=== PATIENT | female | born 1995 | race American Indian/Alaskan Native ===

== ENCOUNTER 2019-08-30 11:53 | Emergency (ER) | payer BC ==
--- NOTE | 2019-08-30 12:00 | Event Note ---
Date of service: 08/30/19 Face to Face: 23-year-old female, not known to this provider previously, not sure if she is , reports no pulmonary embolism or DVT risk factors, low risk by well's criteria, perc negative, positive family history of heart disease in her brother, and her father, presenting with intermittent left-sided chest pain, which does not radiate to the back, arms and neck, with no vomiting, diaphoresis or exertional shortness of breath. The patient also describes a sensation of pressure and palpitations for a few days. EKG unchanged and within normal limits 2. Troponin negative times one. Patient at low risk for major adverse cardiac event. A repeat troponin pending, patient currently resting comfortably in his stretcher, and no acute distress. As per this institutions current policy and protocol, given low risk for major adverse cardiac event as per heart score, patient may follow up with outpatient cardiology to complete a risk stratification. Discussed this with the patient and nurse practitioner. Currently engaged in conversation with laborer brush clearing in her room, and no acute distress. Vital Signs 08/30/19 08/30/19 08/30/19 12:15 12:17 12:20 Temperature 98.3 F Pulse Rate 82 91 H Respiratory 11 L 16 Rate Blood Pressure 109/73 109/73 Blood Pressure 109/73 [Left] O2 Sat by Pulse 99 100 100 Oximetry 08/30/19 08/30/19 08/30/19 12:30 12:45 13:00 Temperature Pulse Rate 78 77 77 Respiratory 10 L 39 H 8 L Rate Blood Pressure 104/64 93/55 106/68 Blood Pressure [Left] O2 Sat by Pulse 100 99 97 Oximetry 08/30/19 08/30/19 13:15 13:31 Temperature Pulse Rate 79 Respiratory 11 L Rate Blood Pressure 106/68 106/68 Blood Pressure [Left] O2 Sat by Pulse 99 99 Oximetry Lab Results 08/30/19 08/30/19 08/30/19 Range/Units 12:10 12:10 12:10 WBC 7.7 (4.5-11.0) K/mm3 RBC 4.38 (3.65-5.03) M/mm3 Hgb 12.2 (10.1-14.3) gm/dl Hct 37.1 (30.3-42.9) % MCV 85 (79-97) fl MCH 28 (28-32) pg MCHC 33 (30-34) % RDW 13.6 (13.2-15.2) % Plt Count 375 (140-440) K/mm3 PT 12.4 (12.2-14.9) Sec. INR 0.93 (0.87-1.13) Sodium 138 (137-145) mmol/L Potassium 3.5 L (3.6-5.0) mmol/L Chloride 102.4 (98-107) mmol/L Carbon Dioxide 20 L (22-30) mmol/L Anion Gap 19 mmol/L BUN 8 (7-17) mg/dL Creatinine 0.7 (0.7-1.2) mg/dL Estimated GFR > 60 ml/min BUN/Creatinine Ratio 11 % Glucose 101 H (65-100) mg/dL Calcium 9.2 (8.4-10.2) mg/dL Magnesium 1.90 (1.7-2.3) mg/dL Total Creatine Kinase 127 (30-135) units/L Troponin T (0.00-0.029) ng/mL TSH (0.270-4.200) mlU/mL HCG, Quant (0-4) mIU/mL 08/30/19 08/30/19 08/30/19 Range/Units 12:10 12:10 12:10 WBC (4.5-11.0) K/mm3 RBC (3.65-5.03) M/mm3 Hgb (10.1-14.3) gm/dl Hct (30.3-42.9) % MCV (79-97) fl MCH (28-32) pg MCHC (30-34) % RDW (13.2-15.2) % Plt Count (140-440) K/mm3 PT (12.2-14.9) Sec. INR (0.87-1.13) Sodium (137-145) mmol/L Potassium (3.6-5.0) mmol/L Chloride (98-107) mmol/L Carbon Dioxide (22-30) mmol/L Anion Gap mmol/L BUN (7-17) mg/dL Creatinine (0.7-1.2) mg/dL Estimated GFR ml/min BUN/Creatinine Ratio % Glucose (65-100) mg/dL Calcium (8.4-10.2) mg/dL Magnesium (1.7-2.3) mg/dL Total Creatine Kinase (30-135) units/L Troponin T < 0.010 (0.00-0.029) ng/mL TSH 1.470 (0.270-4.200) mlU/mL HCG, Quant < 2 (0-4) mIU/mL
[2019-08-30 12:27] LABS: Hematocrit 37.1 % (30.3-42.9); Hemoglobin 12.2 gm/dl (10.1-14.3); Mean Corpuscular HGB Conc 33 % (30-34); Mean Corpuscular Volume 85 fl (79-97); Platelet Count 375 K/mm3 (140-440); Red Blood Count 4.38 M/mm3 (3.65-5.03); Red Cell Distribution Width 13.6 % (13.2-15.2)
--- NOTE | 2019-08-30 12:37 | Emergency Department Report ---
<MICHAEL CORDOBA - Last Filed: 08/30/19 15:31> ED Chest Pain HPI - General Chief Complaint: Chest Pain Stated Complaint: RAPID HEART RATE Time Seen by Provider: 08/30/19 12:07 Source: patient, EMS Mode of arrival: Stretcher Limitations: No Limitations - History of Present Illness Initial Comments: 23-year-old female presents to the ER complaining of heart racing associated with chest pain around 10 AM this morning. She had similar symptoms 2 days ago. She denies nausea vomiting diaphoresis. She has past medical history of diabetes she is currently taking metformin. MD Complaint: chest pain, other ("heart racing") -: Sudden Onset: during rest Pain Location: left chest Pain Radiation: none Severity scale (0 -10): 5 Quality: aching Consistency: now resolved Improves With: nothing Worsens With: nothing Other Symptoms: denies: cough, fever, syncope, rash, acid taste in mouth, leg swelling Aspirin use within the Past 7 Days: (0) No - Related Data On Oral Contraceptives: No (none) Allergies Allergy/AdvReac Type Severity Reaction Status Date / Time No Known Allergies Allergy Unverified 08/30/19 12:14 Heart Score - HEART Score History: Slightly suspicious EKG: Normal Age: < 45 Risk factors: 1-2 risk factors Troponin: < normal limit HEART Score: 1 ED Review of Systems Comment: All other systems reviewed and negative Cardiovascular: chest pain, palpitations Endocrine: no symptoms reported Gastrointestinal: denies: abdominal pain, nausea Musculoskeletal: denies: back pain Skin: denies: as per HPI Neurological: denies: weakness ED Past Medical Hx - Past Medical History Previous Medical History?: Yes Hx Psychiatric Treatment: Yes (anxiety) - Surgical History Past Surgical History?: No - Social History Smoking Status: Never Smoker Substance Use Type: None ED Physical Exam - General Limitations: No Limitations - Head Head exam: Present: atraumatic - Eye Eye exam: Present: normal appearance. Absent: PERRL, EOMI, scleral icterus, conjunctival injection - ENT ENT exam: Present: normal exam, mucous membranes moist - Neck Neck exam: Present: normal inspection - Respiratory Respiratory exam: Present: normal lung sounds bilaterally - Cardiovascular Cardiovascular Exam: Present: regular rate, normal rhythm - GI/Abdominal GI/Abdominal exam: Present: soft. Absent: distended, tenderness, guarding - Rectal Rectal exam: Absent: deferred - Extremities Exam Extremities exam: Present: normal inspection, full ROM, normal capillary refill. Absent: pedal edema - Back Exam Back exam: Present: normal inspection - Neurological Exam Neurological exam: Present: alert, oriented X3 - Psychiatric Psychiatric exam: Present: normal affect - Skin Skin exam: Present: warm, dry, intact, normal color. Absent: diaphoretic JACIEL score - Jaciel Score Age > 65: (0) No Aspirin use within the Past 7 Days: (0) No 3 or more CAD Risk Factors: (0) No 2 or more Angina events in past 24 hrs: (0) No Known CAD with more than 50% Stenosis: (0) No Elevated Cardiac Markers: (0) No ST Deviation Greater than 0.5mm: (0) No JACIEL Score: 0 ED Medical Decision Making - Lab Data Result diagrams: 08/30/19 12:10 08/30/19 12:10 - EKG Data EKG shows normal: sinus rhythm Rate: normal (Rate 75) - EKG Data When compared to previous EKG there are: previous EKG unavailable - Radiology Data Chest X-ray FINDINGS: SUPPORT DEVICES: None. HEART / MEDIASTINUM: No significant abnormality. LUNGS / PLEURA: No significant pulmonary or pleural abnormality. No pneumothorax. ADDITIONAL FINDINGS: No significant additional findings. IMPRESSION: No acute pulmonary or pleural abnormality. Signer Name: Meño Araujo MD FACR Signed: 08/30/2019 1:13 PM Workstation Name: [id number] - Medical Decision Making This is a 23-year-old -[place] female complaining of heart palpitations around 10 AM this morning while sitting at her desk. She states that a friend took her pulse and it was irregular.. Patient reports hx of diabetes she is currently taking metformin. Patient is now talking on the phone denying any chest pain shortness of breath nausea vomiting or diaphoresis. Repeat EKG no acute changes Troponin x 2 wnl Pt comfortable throughout her stay in ER. Pt referred to Cardiology for follow up. Critical Care Time: No ED Disposition Clinical Impression: Chest pain Qualifiers: Chest pain type: unspecified Qualified Code(s): R07.9 - Chest pain, unspecified Disposition: - TO HOME OR SELFCARE Is pt being admited?: No Does the pt Need Aspirin: No Condition: Stable Instructions: Chest Pain (ED) Additional Instructions: Take Aspirin 81 mg po daily. Follow up with your doctor in 2-3 days. Continue with home medications. Rest, do not return to work until cleared by your primary care doctor. Return to the ER for worsening symptoms. You have been referred to [facility]. Referrals: QING WISEMAN MD [Primary Care Provider] - 3-5 Days Forms: Work/School Release Form(ED) Time of Disposition: 15:21 <HAIM ADKINS - Last Filed: 08/31/19 14:22> ED Review of Systems ROS: Stated complaint: RAPID HEART RATE Other details as noted in HPI ED Course Vital Signs 08/30/19 08/30/19 08/30/19 12:15 12:17 12:20 Temperature 98.3 F Pulse Rate 82 91 H Respiratory 11 L 16 Rate Blood Pressure 109/73 109/73 Blood Pressure 109/73 [Left] O2 Sat by Pulse 99 100 100 Oximetry 08/30/19 08/30/19 08/30/19 12:30 12:45 13:00 Temperature Pulse Rate 78 77 77 Respiratory 10 L 39 H 8 L Rate Blood Pressure 104/64 93/55 106/68 Blood Pressure [Left] O2 Sat by Pulse 100 99 97 Oximetry 08/30/19 08/30/19 13:15 13:31 Temperature Pulse Rate 79 Respiratory 11 L Rate Blood Pressure 106/68 106/68 Blood Pressure [Left] O2 Sat by Pulse 99 99 Oximetry - Reevaluation(s) Reevaluation #1: 08/31/19 14:22 Troponin negative 2. EKG unchanged 2. Patient resting comfortably in stretcher on multiple repeat evaluations, she is suitable to closely follow up with outpatient cardiology to complete her risk stratification. ED Medical Decision Making - Lab Data Result diagrams: 08/30/19 12:10 08/30/19 12:10 Critical care attestation.: If time is entered above; I have spent that time in minutes in the direct care of this critically ill patient, excluding procedure time. ED Disposition Is pt being admited?: No Does the pt Need Aspirin: No
[2019-08-30 12:45] LABS: INR 0.93 (0.87-1.13)
[2019-08-30 12:53] LABS: BUN/Creatinine Ratio 11; Blood Urea Nitrogen 8 mg/dL (7-17); Calcium 9.2 mg/dL (8.4-10.2); Hemolysis Index 3
[2019-08-30] MEDS ORDERED: FAMOTIDINE 20 MG TAB PO ONE (12:54)
[2019-08-30] MEDS ORDERED: ACETAMINOPHEN 325 MG TAB PO ONE (12:54)
--- NOTE | 2019-08-30 13:17 | XRay Report ---
CHEST 1 VIEW INDICATION / CLINICAL INFORMATION: chest pain upt. COMPARISON: None available. FINDINGS: SUPPORT DEVICES: None. HEART / MEDIASTINUM: No significant abnormality. LUNGS / PLEURA: No significant pulmonary or pleural abnormality. No pneumothorax. ADDITIONAL FINDINGS: No significant additional findings. IMPRESSION: No acute pulmonary or pleural abnormality. Signer Name: Meño Araujo MD FACR Signed: 08/30/2019 1:13 PM Workstation Name: [id number]
[2019-08-30 13:41] VITALS: BP 106/68
== END 2019-08-30 15:43 | disposition home or self-care (01) ==
LOC: ED 11:53
DX: R07.89 Other chest pain (principal); F41.9 Anxiety disorder, unspecified
CPT/HCPCS: 36415; 71045; 80048; 82550; 83735; 84443; 84484; 84702; 85027; 85610; 93005; 93010